=== PATIENT | male | born 1975 | race Caucasian/White ===

== ENCOUNTER 2017-03-30 14:13 | Emergency (ER) | payer OTHER ==
[2017-03-30] MEDS ORDERED: PRED20TA PO (14:46)
--- NOTE | 2017-03-30 14:49 | PHYS DOC ---
General Chief Complaint: SKIN PROBLEM Stated Complaint: RASH X 7 DAYS Time Seen by MD: 14:15 Source: patient Exam Limitations: no limitations Problems: History of Present Illness Initial Comments Patient is a 42-year-old male who comes to the ED complaining of skin rash. Patient states that approximately one week ago he was helping a family member remodeled home, he states that he reached his right arm up through the ceiling and into the rafters at one point. Shortly after that he developed redness and itching at his right forearm, he says clear blisters did develop and when they popped clear yellow discharge was noted. Over the following days the rash spread to his left wristand parts of his anterior abdomen, he used over-the- counter Benadryl to aid with the itching and the left wrist and abdomen symptoms have primarily resolved. Patient still has redness and itching on his face and right forearm, [facility] cephalexin which has not helped. 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 Tetanus status unknown, patient is a smoker, he denies any facial mouth or throat swelling, no cough wheeze hoarseness or feeling of lump in throat, no dyspnea on exertion. Patient is otherwise normally healthy denies daily medications or other complaints. Timing/Duration: 1 week, changing over time Severity: moderate Modifying Factors: improves with cold therapy Associated Symptoms: rash Allergies: Coded Allergies: No Known Drug Allergies (Unverified , 03/30/17) Past Medical History Medical History: no pertinent history Surgical History: noncontributory Social History Smoker: cigarettes Alcohol: none Drugs: marijuana Review of Systems Constitutional: denies chills, denies diaphoresis, denies fever, denies malaise EENTM: denies blurred vision, denies ear pain, denies nose congestion, denies throat pain, denies throat swelling, denies mouth pain, denies mouth swelling Respiratory: denies cough, denies orthopnea, denies shortness of breath, denies stridor, denies wheezing Cardiovascular: denies chest pain, denies palpitations, denies syncope Gastrointestinal: denies abdominal pain, denies nausea, denies vomiting Musculoskeletal: denies back pain, denies joint swelling, denies neck pain Skin: see HPI Immunological/Allergic: denies food allergy, denies grass allergy, denies mold allergy, denies pollen allergy Physical Exam General Appearance: WD/WN, no apparent distress Eyes: bilateral eye normal inspection, bilateral eye PERRL, bilateral eye EOMI Ear, Nose, Throat: hearing grossly normal, normal ENT inspection, normal pharynx, other (airway is patent no soft tissue swelling) Neck: full range of motion, supple Respiratory: chest non-tender, normal breath sounds, no respiratory distress Cardiovascular: normal peripheral pulses, regular rate, rhythm Extremities: normal range of motion, non-tender 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 I discussed linen changes to prevent spread in addition to time off work. I discussed smoking cessation, [id number] or prescription medications. Signs and symptoms to monitor as well as indications for urgent return discussed. The patient's questions were answered to his satisfaction and he expressed agreement and understanding with the treatment plan. Departure Time of Disposition: 14:47 Disposition: 01 HOME, SELF-CARE Diagnosis: allergic reaction NOS, tobaccoism Condition: STABLE Patient Instructions: Allergy Skin Testing Additional Instructions: Off work through Thursday note given. Change sheets and linens daily as discussed. Avoid warm showers and warm temperatures for optimal symptom control. [id number] Pepcid 20 mg twice daily, Benadryl 25-50 mg every 6 hours Prescriptions: Prednisone You received a tetanus vaccination today, update your records. Stop smoking seek medical assistance if necessary. Follow-up with a doctor in 3 days for recheck. Return to the ED with new or changing symptoms. KEISHA ANGUIANO DO Mar 30, 2017 14:49
[2017-03-30] MEDS ORDERED: methylPREDNISolone SOD SUCC PF 125 MG/2 ML VIAL. ONE (14:53)
[2017-03-30] MEDS ORDERED: DIPHTH,PERTUSS(ACELL),TET TOX 0.5 ML DISP.SYRIN. VAX IM ONE (15:00)
[2017-03-30] MEDS ORDERED: methylPREDNISolone SOD SUCC PF 125 MG/2 ML VIAL. IV ONE (15:00)
[2017-03-30] MEDS ORDERED: methylPREDNISolone SOD SUCC PF 125 MG/2 ML VIAL. IM ONE (15:00)
[2017-03-30 15:10] VITALS: BP 154/98
== END 2017-03-30 15:10 | disposition home or self-care (01) ==
LOC: ER 14:13
DX: T78.40XA Allergy, unspecified, initial encounter (principal); F17.210 Nicotine dependence, cigarettes, uncomplicated; F12.10 Cannabis abuse, uncomplicated; X58.XXXA Exposure to other specified factors, initial encounter
CPT/HCPCS: 90471; 90715; 96372; 99284; J2930

== ENCOUNTER 2019-10-15 00:24 | Emergency (ER) | payer BC, OTHER ==
[~2019-10-15] VITALS: Ht 182.9 cm; Wt 86.3 kg
[~2019-10-15 00:24] MED LIST: PRED20TA PO
--- NOTE | 2019-10-15 00:27 | PHYS DOC ---
Past History Past Medical History: No Pertinent History, Bronchitis Past Surgical History: Other Smoking: Cigarettes Alcohol Use: Occasionally Drug Use: Marijuana General Adult HPI: HPI: "..I got this back pain.. heard something pop....when...I was just standing around ... I was coughing a little before onset of the severe pain.".." It feels like when I ve had a cracked or broken rib... " Patient is a 44 year old male who presents with above hx and complaints serve on set of Rt posterior chest wall and mid spine pain. Pt. does smoke tobacco. And occasionally marijuana. Patient denies any trauma. Patient did admit to drinking some alcohol tonight. No history of immunosuppression, fever, cancers, or specific ill contacts. Patient currently rating his pain as severe. Movement exacerbates the pain. Cough and deep breaths exacerbate pain. Pain currently rated 8-10 out of 10. Pain is worse with deep breaths and cough. Patient denies any history of DVTs or pulmonary embolism or coronary artery disease. No history of renal stones. Review of Systems: Review of Systems: Constitutional: Denies fever or chills Eyes: Denies change in visual acuity HENT: Denies nasal congestion or sore throat Respiratory: History of a nonproductive cough Cardiovascular: Complains of right chest wall back pain GI: Denies abdominal pain, nausea, vomiting, bloody stools or diarrhea : Denies dysuria Musculoskeletal: Complains of right chest wall back pain Integument: Denies rash Neurologic: Denies headache, focal weakness or sensory changes Endocrine: Denies polyuria or polydipsia Lymphatic: Denies swollen glands Psychiatric: Denies depression or anxiety Heart Score: HEART Score for Chest Pain: HEART Score for Chest Pain Response (Comments) Value History Slighlty/Non-Suspicious 0 ECG Normal 0 Age < 45 0 Risk Factors 1 or 2 Risk Factors 1 Troponin < Normal Limit 0 Total 1 Risk Factors: Risk Factors: DM, Current or recent (<one month) smoker, HTN, HLP, family history of CAD, obesity. Risk Scores: Score 0 - 3: 2.5% MACE over next 6 weeks - Discharge Home Score 4 - 6: 20.3% MACE over next 6 weeks - Admit for Clinical Observation Score 7 - 10: 72.7% MACE over next 6 weeks - Early Invasive Strategies Family History: Family History: Noncontributory Current Medications: Current Meds: See nursing for home meds Allergies: Allergies: Allergies Coded Allergies Type Severity Reaction Last Updated Verified No Known Drug Allergies 03/30/17 No Physical Exam: PE: Constitutional: Moderate acute distress, non-toxic appearance. [] HENT: Normocephalic, atraumatic, bilateral external ears normal, oropharynx moist, no oral exudates, nose normal. [] Eyes: PERRLA, EOMI, conjunctiva normal, no discharge. [] Neck: Normal range of motion, no tenderness, supple, no stridor. [] Cardiovascular:Heart rate regular rhythm, no murmur [] Lungs & Thorax: Bilateral breath sounds equal at apex with scattered wheezes on auscultation. Patient has [] some basilar crackles on right. Pt. pain is reproduced and exacerbated with cough, deep breaths and percussion on Rt side of chest. Abdomen: Bowel sounds normal, soft, no tenderness, no masses, no pulsatile masses. [] Skin: Warm, dry, no erythema, no rash. [Multiple tattoos. Back: Mid spine T12/L1 level tenderness, right chest wall and CVA tenderness. [] Extremities: No tenderness, no cyanosis, no clubbing, ROM intact, no edema. [] No cording appreciated. Neurologic: Alert and oriented X 3, normal motor function, normal sensory function, no focal deficits noted. [] DTRs +2 patella. Psychologic: Affect anxious, judgement normal, mood normal. [] EKG: EKG: My interpretation EKG shows a sinus rhythm at 66 bpm. No findings of acute morphology [] Radiology/Procedures: Radiology/Procedures: [address] [id number] IMAGING REPORT Signed PATIENT: KEMI RAMOS ACCOUNT: [id number] : 1975 LOCATION: ER AGE: 44 SEX: M EXAM STATUS: REG ER ORD. PHYSICIAN: TOMMY ORR MD REASON: LOW BACK PAIN PROCEDURE: CT LUMBAR SPINE WO CONTRAST CT scan of the thoracic and lumbar spine without contrast 10/12/2019 CLINICAL HISTORY: Mid and low back pain aggravated by coughing. TECHNIQUE: Unenhanced contiguous, 0.625 mm axial sections were obtained through the thoracic and lumbar spine. 2 mm reconstructed sagittal, axial and coronal images were obtained. One or more of the following individualized dose reduction techniques were utilized for this study: 1. Automated exposure control. 2. Adjustment of the mA and/or kV according to patient size. 3. Use of iterative reconstruction technique. FINDINGS: Sagittal and coronal reconstructed images demonstrate minimal S-shaped curvature of the thoracolumbar spine. The Patient has transitional vertebral anatomy. The transitional vertebral segment is partially sacralized. No fracture or subluxation of the thoracic and lumbar vertebrae seen. No significant degenerative changes are noted. No area of significant central spinal canal or neural foraminal stenosis is seen. IMPRESSION: Negative study. Electronically signed by: Mark Livingston MD (10/15/2019 4:38 AM) [id number] DICTATED AND SIGNED BY: MARK LIVINGSTON MD DATE: 10/15/19 0438 CC: TOMMY ORR MD; PCP,NO ~ [place] [id number] IMAGING REPORT Signed PATIENT: KEMI RAMOS ACCOUNT: [id number] : 1975 LOCATION: ER AGE: 44 SEX: M EXAM STATUS: REG ER ORD. PHYSICIAN: TOMMY ORR MD REASON: Omni 350,100ml IV.Cough,chest pain.Hx smoker PROCEDURE: CT ANGIOGRAPHY CHEST CTA scan of the Chest with Contrast (Pulmonary Embolism protocol) 10/15/2019 Clinical History: Chest pain and cough Technique: After the intravenous administration of 99 cc of common hepatic 350, contiguous, 0.625 mm axial sections were obtained through the chest. 2 mm axial and 3D MIP coronal and sagittal reconstructed images were obtained. One or more of the following individualized dose reduction techniques were utilized for this study: 1. Automated exposure control. 2. Adjustment of the mA and/or kV according to patient size. 3. Use of iterative reconstruction technique. Findings: No filling defect is seen within the major branches of either pulmonary artery. There is no CT evidence of pulmonary embolism. The heart and thoracic aorta are within normal limits. Minimal dependent subsegmental atelectasis is seen involving both lungs. No area of consolidation, pleural effusion or pneumothorax is seen. Impression: There is no CT evidence of pulmonary embolism. Electronically signed by: Mark Livingston MD (10/15/2019 4:34 AM) [id number] DICTATED AND SIGNED BY: MARK LIVINGSTON MD DATE: 10/15/19 0434 CC: TOMMY ORR MD; [place][][id number] IMAGING REPORT Signed PATIENT: KEMI RAMOS ACCOUNT: [id number] : 1975 LOCATION: ER AGE: 44 SEX: M EXAM STATUS: REG ER ORD. PHYSICIAN: TOMMY ORR MD REASON: CHEST PAIN PROCEDURE: CHEST PA & LATERAL PA and lateral chest radiographs 10/15/2019 CLINICAL HISTORY: Chest pain. PA and two lateral digital radiographs of the chest were obtained. No previous studies are available for comparison. The cardiac silhouette is normal in size. The thoracic aorta is mildly tortuous. Patchy right lower lobe atelectasis and/or infiltrate is seen. No pneumothorax or pleural effusion is noted. Mild degenerative changes are seen involving the thoracic spine. IMPRESSION: Patchy right lower lobe atelectasis and/or infiltrate. Electronically signed by: Mark Livingston MD (10/15/2019 3:24 AM) [id number] DICTATED AND SIGNED BY: MARK LIVINGSTON MD DATE: 10/15/19 0324 CC: TOMMY ORR MD; PCP,NO ~ Course & Med Decision Making: Course & Med Decision Making Pertinent Labs and Imaging studies reviewed. (See chart for details) Pt. to continue deep breaths. Use MDI two puffs four times a day. Stop smoking. Take a daily aspirin. May take Tylenol and ibuprofen for pain. For marked pain may take Vicoprofen. Take Zithromax 250 a day. Must follow-up primary care. Return if any concerns. Do not bind chest to relieve respiratory pain or the cracked rib sensation. Impression- 1. Right flank chest wall pain- suspect cartilage tear 2. Elevated CRP 6.0 3. Elevated alcohol 241 4. Tobacco Use [] Dragon Disclaimer: [place] Disclaimer: This electronic medical record was generated, in whole or in part, using a voice recognition dictation system. Departure Departure: Disposition: 01 HOME/RESIDENCE PRIOR TO ADM Condition: STABLE Referrals: PCP,NO (PCP) Scripts Hydrocodone/Ibuprofen (HYDROCODONE-IBUPROFEN 7.5-200 ) 1 Each Tablet 1 TAB PO PRN Q6HRS PRN for PAIN, #30 TAB 0 Refills Prov: TOMMY ORR MD 10/15/19 Azithromycin (ZITHROMAX) 250 Mg Tablet 250 MG PO DAILY for ANTI-BIOTIC for 5 Days, #5 TAB 0 Refills Prov: TOMMY ORR MD 10/15/19 Dragon Disclaimer This chart was dictated in whole or in part using Voice Recognition software in a busy, high-work load, and often noisy Emergency Department environment. It may contain unintended and wholly unrecognized errors or omissions. Dragon Disclaimer This chart was dictated in whole or in part using Voice Recognition software in a busy, high-work load, and often noisy Emergency Department environment. It may contain unintended and wholly unrecognized errors or omissions. TOMMY ORR MD October 15, 2019 00:27
[2019-10-15 02:05] LABS: BASO % 1 % (0-3); EOS # 0.1 x10^3/uL (0.0-0.7); EOS % 1 % (0-3); HEMATOCRIT 42.8 % (39.0-53.0); HEMOGLOBIN 14.8 g/dL (13.0-17.5); LYMPH # 3.4 x10^3/uL (1.0-4.8); LYMPH % 47 % (24-48); MEAN CORPUSCULAR HEMOGLOBIN 34 pg (25-35); MEAN CORPUSCULAR HGB CONC 35 g/dL (31-37); MEAN CORPUSCULAR VOLUME 99 fL (79-100); MONO # 0.6 x10^3/uL (0.0-1.1); MONO % 9 % (0-9); NEUT # 3.2 x10^3uL (1.8-7.7); NEUT % 44 % (31-73); PLATELET COUNT 280 x10^3/uL (140-400); RED CELL DISTRIBUTION WIDTH 13.1 % (11.5-14.5); WHITE BLOOD COUNT 7.3 x10^3/uL (4.0-11.0)
[2019-10-15 02:12] LABS: BILIRUBIN,URINE NEG (NEG); CLARITY,URINE CLEAR; COLOR,URINE YELLOW; GLUCOSE,URINE NEG (NEG); NITRITE,URINE NEG (NEG); UROBILINOGEN,URINE 0.2 mg/dL (0.2 mg/dL)
[2019-10-15 02:13] LABS: CALCIUM 8.8 mg/dL (8.5-10.1); CREATININE 0.9 mg/dL (0.7-1.3); GFR 91.7; POTASSIUM 3.4 mmol/L (3.5-5.1)
[2019-10-15 02:13] LABS: BACTERIA,URINE 0 /HPF (0-FEW); RBC,URINE 0 /HPF (0-2); SQUAMOUS EPITHELIAL CELL,UR OCC /LPF; WBC,URINE RARE /HPF (0-4)
--- NOTE | 2019-10-15 02:13 | EKG ---
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
[2019-10-15 02:14] LABS: BARBITURATES NEG (NEG); BENZODIAZEPINES NEG (NEG); CANNABINOIDS NEG (NEG); COCAINE NEG (NEG); METHADONE NEG (NEG); OPIATES NEG (NEG); PHENCYCLIDINE NEG (NEG)
[2019-10-15 02:17] LABS: AMPHETAMINE/METHAMPHETAMINE NEG (NEG)
[2019-10-15 02:25] LABS: ALBUMIN 4.2 g/dL (3.4-5.0); DIRECT BILIRUBIN 0.1 mg/dL (0.0-0.2); MAGNESIUM 2.3 mg/dL (1.8-2.4); TOTAL BILIRUBIN 0.3 mg/dL (0.2-1.0); TOTAL PROTEIN 7.8 g/dL (6.4-8.2)
[2019-10-15] MEDS ORDERED: MORPHINE SULFATE 10 MG/ML SYRINGE. SQ ONE (02:30)
[2019-10-15] MEDS ORDERED: IV RINGERS SOLUTION,LACTATED 1,000 ML IV SCH (02:30)
[2019-10-15] MEDS ORDERED: ASPIRIN CHEWABLE 81 MG TABLET. PO ONE (02:30)
[2019-10-15] MEDS ORDERED: KETOROLAC 30 MG/ML VIAL. IVP ONE (02:30)
--- NOTE | 2019-10-15 03:27 | RAD ---
PA and lateral chest radiographs 10/15/2019 CLINICAL HISTORY: Chest pain. PA and two lateral digital radiographs of the chest were obtained. No previous studies are available for comparison. The cardiac silhouette is normal in size. The thoracic aorta is mildly tortuous. Patchy right lower lobe atelectasis and/or infiltrate is seen. No pneumothorax or pleural effusion is noted. Mild degenerative changes are seen involving the thoracic spine. IMPRESSION: Patchy right lower lobe atelectasis and/or infiltrate. Electronically signed by: Mark Win MD (10/15/2019 3:24 AM) [id number]
[2019-10-15] MEDS ORDERED: IOHEXOL 350 MG/ML 100 ML VIAL. IV ONE (03:30)
[2019-10-15] MEDS ORDERED: CONTRAST GIVEN MC PRN (03:30)
--- NOTE | 2019-10-15 04:37 | RAD ---
CTA scan of the Chest with Contrast (Pulmonary Embolism protocol) 10/15/2019 Clinical History: Chest pain and cough Technique: After the intravenous administration of 99 cc of common hepatic 350, contiguous, 0.625 mm axial sections were obtained through the chest. 2 mm axial and 3D MIP coronal and sagittal reconstructed images were obtained. One or more of the following individualized dose reduction techniques were utilized for this study: 1. Automated exposure control. 2. Adjustment of the mA and/or kV according to patient size. 3. Use of iterative reconstruction technique. Findings: No filling defect is seen within the major branches of either pulmonary artery. There is no CT evidence of pulmonary embolism. The heart and thoracic aorta are within normal limits. Minimal dependent subsegmental atelectasis is seen involving both lungs. No area of consolidation, pleural effusion or pneumothorax is seen. Impression: There is no CT evidence of pulmonary embolism. Electronically signed by: Mark Win MD (10/15/2019 4:34 AM) [id number]
--- NOTE | 2019-10-15 04:41 | RAD ---
CT scan of the thoracic and lumbar spine without contrast 10/12/2019 CLINICAL HISTORY: Mid and low back pain aggravated by coughing. TECHNIQUE: Unenhanced contiguous, 0.625 mm axial sections were obtained through the thoracic and lumbar spine. 2 mm reconstructed sagittal, axial and coronal images were obtained. One or more of the following individualized dose reduction techniques were utilized for this study: 1. Automated exposure control. 2. Adjustment of the mA and/or kV according to patient size. 3. Use of iterative reconstruction technique. FINDINGS: Sagittal and coronal reconstructed images demonstrate minimal S-shaped curvature of the thoracolumbar spine. The Patient has transitional vertebral anatomy. The transitional vertebral segment is partially sacralized. No fracture or subluxation of the thoracic and lumbar vertebrae seen. No significant degenerative changes are noted. No area of significant central spinal canal or neural foraminal stenosis is seen. IMPRESSION: Negative study. Electronically signed by: Mark Win MD (10/15/2019 4:38 AM) [id number]
[2019-10-15] MEDS ORDERED: AZITHROMYCIN 250 MG TABLET. ONE (04:53)
[2019-10-15] MEDS ORDERED: AZIT250T PO (04:54)
[2019-10-15] MEDS ORDERED: HYDR-1179 PO (04:54)
[2019-10-15] MEDS ORDERED: AZITHROMYCIN 250 MG TABLET. PO ONE (05:15)
[2019-10-15] MEDS ORDERED: ALBUTEROL SULFATE 8GM INHALER. INH ONE (05:15)
[2019-10-15 05:25] VITALS: BP 110/58
== END 2019-10-15 05:25 | disposition home or self-care (01) ==
LOC: ER 00:24
DX: R07.89 Other chest pain (principal); R79.82 Elevated C-reactive protein (CRP); R05 Cough; F17.210 Nicotine dependence, cigarettes, uncomplicated; F12.90 Cannabis use, unspecified, uncomplicated
CPT/HCPCS: 36415; 71046; 71275; 72128; 72131; 80048; 80076; 80307; 81001; 82550; 83690; 83735; 83880; 84443; 84484; 85025; 85379; 85610; 85730; 86140; 93005; 94640; 96372; 96374; 99285; G0480; J0456; J1885; J2270; J7120; Q9967; 94664